=== PATIENT | male | born 1995 | race Caucasian/White ===

== ENCOUNTER 2017-08-05 13:13 | Emergency (ER) | payer SELFPAY ==
[2017-08-05 14:27] VITALS: BP 127/70
[2017-08-05 15:30] LABS: Basophils % (Auto) 0.3 % (0.0-1.8); Eosinophils % (Auto) 0.1 % (0.0-4.3); Hematocrit 45.3 % (35.5-45.6); Hemoglobin 15.3 gm/dl (11.8-15.2); Lymphocytes # (Auto) 1.5 K/mm3 (1.2-5.4); Lymphocytes % (Auto) 17.4 % (13.4-35.0); Mean Corpuscular HGB Conc 34 % (32-34); Mean Corpuscular Hemoglobin 31 pg (28-32); Mean Corpuscular Volume 92 fl (84-94); Monocytes # (Auto) 0.3 K/mm3 (0.0-0.8); Platelet Count 241 K/mm3 (140-440); Red Blood Count 4.92 M/mm3 (3.65-5.03); Red Cell Distribution Width 13.5 % (13.2-15.2)
[2017-08-05 15:37] LABS: Amorphous Crystals,Urine Few; Bacteria,Urine 2+ /HPF (Negative); Bilirubin,Urine NEG (Negative); Blood,Urine NEG (Negative); Color,Urine Yellow (Yellow); Protein,Urine <15 mg/dL mg/dL (Negative); Urobilinogen,Urine < 2.0 mg/dL (<2.0); WBC,Urine < 1.0 /HPF (0.0-6.0)
[2017-08-05 15:41] LABS: BUN/Creatinine Ratio 23; Blood Urea Nitrogen 16 mg/dL (9-20); Calcium 9.2 mg/dL (8.4-10.2); Hemolysis Index 12
--- NOTE | 2017-08-05 19:19 | Emergency Department Report ---
ED Dizziness HPI - General Chief Complaint: Dizziness Stated Complaint: DIZZY Time Seen by Provider: 08/05/17 19:09 Source: patient Mode of arrival: Ambulatory Limitations: Language Barrier - History of Present Illness Initial Comments: 22-year-old male past medical history none presents with complaint of worsening generalized weakness and feeling more fatigued than usual. Also complaining of intermittent headaches. Has been ongoing for approximately 1 month. Denies any current chest pain abdominal pain nausea vomiting dysuria or hematuria increased urinary frequency. Denies any upper or lower extremity paresthesias. Denies any recent trauma specifically had her neck trauma. Denies any loss of consciousness but does state that he becomes somewhat dizzy and makes him feel slightly faint from time to time. Denies alcohol or drug use. Patient is currently awake alert and oriented 3 not in acute distress. Adamantly denies any chest pain palpitations shortness of breath and pleuritic chest pain and blurry vision. MD Complaint: dizziness Onset/Timin -: month(s) Description: lightheadedness History of Same: No History of Trauma: No Severity: moderate - Related Data Previous Rx's Medication Instructions Recorded Last Taken Type Meclizine [Antivert] 12.5 mg PO BID PRN #20 tablet 08/05/17 Unknown Rx Allergies Allergy/AdvReac Type Severity Reaction Status Date / Time No Known Allergies Allergy Unverified 08/05/17 14:27 ED Review of Systems ROS: Stated complaint: DIZZY Other details as noted in HPI Constitutional: denies: chills, fever Eyes: denies: eye pain, eye discharge, vision change ENT: denies: ear pain, throat pain Respiratory: denies: cough, shortness of breath, wheezing Cardiovascular: denies: chest pain, palpitations Endocrine: no symptoms reported Gastrointestinal: denies: abdominal pain, nausea, diarrhea Genitourinary: denies: urgency, dysuria Musculoskeletal: denies: back pain, joint swelling, arthralgia Skin: denies: rash, lesions Neurological: denies: headache, weakness, paresthesias Psychiatric: denies: anxiety, depression Hematological/Lymphatic: denies: easy bleeding, easy bruising ED Past Medical Hx - Past Medical History Previous Medical History?: No - Surgical History Past Surgical History?: No - Social History Smoking Status: Never Smoker Substance Use Type: None - Medications Home Medications: Home Medications Medication Instructions Recorded Confirmed Last Taken Type Meclizine [Antivert] 12.5 mg PO BID PRN #20 tablet 08/05/17 Unknown Rx ED Physical Exam - General Limitations: Language Barrier General appearance: alert, in no apparent distress - Head Head exam: Present: atraumatic, normocephalic - Eye Eye exam: Present: normal appearance, PERRL, EOMI - ENT ENT exam: Present: normal exam, mucous membranes moist, TM's normal bilaterally - Neck Neck exam: Present: normal inspection, full ROM (patient has no meningismus flexion and extension and lateral rotation and lateral flexion is clinically intact. No bruit in neck ) - Respiratory Respiratory exam: Present: normal lung sounds bilaterally (lungs clear to auscultation bilaterally). Absent: respiratory distress - Cardiovascular Cardiovascular Exam: Present: regular rate, normal rhythm, normal heart sounds. Absent: systolic murmur, diastolic murmur, rubs, gallop - GI/Abdominal GI/Abdominal exam: Present: soft (abdomen is soft nontender nondistended all 4 quadrants), normal bowel sounds - Rectal Rectal exam: Present: deferred - Extremities Exam Extremities exam: Present: normal inspection - Back Exam Back exam: Present: normal inspection, full ROM - Neurological Exam Neurological exam: Present: alert, oriented X3, CN II-XII intact, normal gait - Expanded Neurological Exam Expanded Patient oriented to: Present: person, place, time Cranial nerves: EOM's Intact: Normal, Facial Sensation: Normal Cerebellar function: Finger to Nose: Normal, Heel to Pate: Normal, Romberg: Normal Sensory exam: Upper Extremity Light Touch: Normal, Lower Extremity Light Touch: Normal Motor strength exam: RUE: 5, LUE: 5, RLE: 5, LLE: 5 DTR: tricep (R): 3+, tricep (L): 3+, knee (R): 3+, knee (L): 3+, ankle (R): 3+, ankle (L): 3+ Best Eye Response (Zakiya): (4) open spontaneously Best Motor Response (Zakiya): (6) obeys commands Best Verbal Response (Zakiya): (5) oriented [place] Total: 15 - Psychiatric Psychiatric exam: Present: normal affect, normal mood - Skin Skin exam: Present: warm, dry, intact, normal color. Absent: rash ED Course Vital Signs 08/05/17 08/05/17 14:22 19:34 Temperature 99.1 F Pulse Rate 55 L Respiratory 18 16 Rate Blood Pressure 127/70 O2 Sat by Pulse 100 100 Oximetry ED Medical Decision Making - Lab Data Result diagrams: 08/05/17 14:57 08/05/17 14:57 - Medical Decision Making A/P: Vertigo 1-meclizine when necessary 2-patient has no neurological deficits on clinical exam. Awake alert and oriented 3. No meningismus and no nuchal rigidity. Has no vertical or horizontal or circular nystagmus on exam. Vision 20/20 bilaterally. Range of motion not clinically intact. Patient reports no fevers no photo or phonophobia. Cranial nerves 2, 3, 4, 5, 6, 7, 8,10, 11, 12 intact on clinical exam, patient is fully lucid awake alert and oriented 3 conversant. Denies any upper or lower extremity paresthesias and has 5/5 strength in bilateral upper and lower extremities on clinical exam. 3- CT scan of head unremarkable. Labs including TSH free T4 troponin BMP CBC urinalysis and urine toxicology are all unremarkable. Patient has sinus rhythm. I discussed EKG with Dr. Tapia before discharge 4-I advised patient to follow up with primary care and neurology. She has no overt cranial clinical neurological deficits at this time. I advised him to return to the ED for any chest pain nausea vomiting photo or phonophobia neck rigidity inability to tolerate by mouth fluid or food by mouth blurry vision severe headache or paresthesias. Patient stated he understood my instructions. I am a tribal [place] speaker and was able to converse with patient without any difficulty. Patient's family member was at bedside and stated that they would also encourage him to follow up as an outpatient. 5- heart score 1, d-dimer negative. Patient reported no palpitations pleuritic chest pain or any substernal chest pain at rest or with exertion. I ordered EKG and troponin as patient did say that he has had intermittent weakness for over 1 month to ascertain if there is any cardiac component to his weakness. EKG shows some early re-pole which I discussed with attending. No other significant abnormalities. Patient does not smoke and has no family history of WI in his mother or father. Critical care attestation.: If time is entered above; I have spent that time in minutes in the direct care of this critically ill patient, excluding procedure time. ED Disposition Clinical Impression: Vertigo Disposition: DC-01 TO HOME OR SELFCARE Is pt being admited?: No Does the pt Need Aspirin: No Condition: Stable Instructions: Vertigo (ED), Dizziness (ED) Additional Instructions: [email or web address] Prescriptions: Meclizine [Antivert] 12.5 mg PO BID PRN #20 tablet PRN Reason: Vertigo Referrals: [facility] [Provider Group] - 3-5 Days MIKHAIL ABARCA MD [Staff Physician] - 3-5 Days Time of Disposition: 21:57 Print Language: ICELANDIC
[2017-08-05 19:35] LABS: Amphetamine Screen,Urine PRESUMPTIVE NEGATIVE; Benzodiazepines Screen,Urine PRESUMPTIVE NEGATIVE; Cannabinoid Screen,Urine PRESUMPTIVE NEGATIVE; Cocaine Screen,Urine PRESUMPTIVE NEGATIVE; Methadone Screen,Urine PRESUMPTIVE NEGATIVE; Opiate Screen,Urine PRESUMPTIVE NEGATIVE
--- NOTE | 2017-08-05 20:06 | Cat Scan Report ---
FINAL REPORT PROCEDURE: CT HEAD/BRAIN WO CON TECHNIQUE: Computerized tomography of the head was performed without contrast material. HISTORY: weakness and headache COMPARISON: No prior studies are available for comparison. FINDINGS: No CT evidence of intracranial mass, hemorrhage, acute territorial infarction, or hydrocephalus. The intracranial arteries are symmetric in density. Calvarium is intact. The visualized paranasal sinuses and mastoids are aerated. IMPRESSION: No CT evidence of acute abnormality
== END 2017-08-05 22:00 | disposition home or self-care (01) ==
LOC: ED 13:13
DX: R42 Dizziness and giddiness (principal); R51 Headache; Z79.899 Other long term (current) drug therapy
CPT/HCPCS: 36415; 70450; 80048; 80307; 81001; 82550; 84439; 84443; 84484; 85025; 85379; 93005; 93010; 99284